=== PATIENT | male | born 1995 | race Caucasian/White ===

== ENCOUNTER 2021-01-01 15:15 | Outpatient (REF) | payer MEDICAID, SELFPAY ==
[2021-01-01 16:15] LABS: BUN 13 mg/dL (7-18); Calcium 9.4 mg/dL (8.5-10.1); Calculated LDL 144 mg/dL (<100); Chloride 106 mmol/L (98-107); Cholesterol 214 mg/dL (<200); Glucose 87 mg/dL (74-106); HDL Cholesterol 45 mg/dL (40-60); Potassium 4.1 mmol/L (3.5-5.1); Sodium 143 mmol/L (136-145); Triglyceride 127 mg/dL (<150)
== END 2021-01-01 15:16 | disposition home or self-care (01) ==
LOC: NCHCN 15:15
PROVIDERS: Visit Provider Physician Assistant
DX: K21.9 Gastro-esophageal reflux disease without esophagitis (principal); I10 Essential (primary) hypertension
CPT/HCPCS: 80048; 80061

== ENCOUNTER 2021-08-03 13:22 | Outpatient (REF) | payer MEDICAID, SELFPAY ==
[2021-08-06 16:42] LABS: Chlamydia Result Negative (Negative); GC Result Negative (Negative)
== END 2021-08-03 13:23 | disposition home or self-care (01) ==
LOC: NCHCN 13:22
PROVIDERS: Visit Provider Physician Assistant
DX: R30.0 Dysuria (principal); Z11.3 Encounter for screening for infections with a predominantly sexual mode of transmission
CPT/HCPCS: 87491; 87591

== ENCOUNTER 2022-01-08 12:20 | Outpatient (REF) | payer MEDICAID, SELFPAY ==
[2022-01-08 15:44] LABS: ALT 36 U/L (16-63); AST 15 U/L (15-37); Albumin 4.8 g/dL (3.4-5.0); Alkaline Phosphatase 90 U/L (46-116); Amylase 54 U/L (25-115); Anion Gap 11.8 mmol/L (3-11); BUN 17 mg/dL (7-18); Bilirubin, Total 0.5 mg/dL (0.2-1.0); CO2 26.2 mmol/L (21.0-32.0); Calcium 9.6 mg/dL (8.5-10.1); Chloride 104 mmol/L (98-107); Glucose 85 mg/dL (74-106); Lipase 89 U/L (73-393); Sodium 142 mmol/L (136-145); Total Protein 7.8 g/dL (6.4-8.2)
[2022-01-08 15:45] LABS: Abs Immature Grans 0.04 10^3/uL (0.0-0.06); Absolute Basophil Count 0.02 10^3/uL (0.0-0.2); Absolute Eosinophil Count 0.34 10^3/uL (0.0-0.7); Absolute Lymphocyte Count 3.35 10^3/uL (1.2-3.4); Absolute Monocyte Count 0.59 10^3/uL (0.1-0.8); Absolute Neutrophil Count 7.26 10^3/uL (1.2-6.7); Basophils % 0.2; Eosinophils % 2.9; HCT 47.9 % (40.0-50.0); HGB 16.3 g/dL (13.5-17.5); Immature Grans % 0.3; Lymphocytes % 28.9; MCH 29.9 pg (27.0-33.0); MCV 87.7 fL (80-95); MPV 10.8 fL (8.0-11.0); Monocytes % 5.1; Neutrophils % 62.6; Nucleated RBC 0 %; Platelet Count 238 10^3/uL (130-400); RBC 5.46 10^6/uL (4.36-5.78); RDW 12.7 % (11.8-14.1); RDW-SD 40.8 fL
[2022-01-09 11:48] LABS: IgA 254 mg/dL (85-499); Interpretation (See Note); Tissue Transglutaminase IgA <1.2 U/mL (<4.0)
== END 2022-01-08 12:21 | disposition home or self-care (01) ==
LOC: LBN 12:20
PROVIDERS: Visit Provider Nurse Practitioner Family
DX: R10.11 Right upper quadrant pain (principal)
CPT/HCPCS: 80053; 82784; 83516; 83690; 82150; 85025

== ENCOUNTER → 2022-01-08 14:58 | Outpatient (CLI) | payer MEDICAID, SELFPAY ==
--- NOTE | 2022-01-08 | DI.CT_ITS ---
Exam(s) CT ABDOMEN PELVIS W EXAM: CT ABDOMEN PELVIS W CLINICAL HISTORY: ABD PAIN R10.84 TECHNIQUE: Imaging Protocol: Axial computed tomography images with coronal and sagittal reformatted images were created and reviewed CONTRAST MATERIAL: Intravenous: Omnipaque 350 Contrast volume:100 mL Oral: Yes COMPARISON: No exams were available for comparison FINDINGS: ABDOMEN: Lung Bases: Normal where visualized. Liver: Normal density. No measurable mass. Portal, Superior Mesenteric, and Splenic Veins: Unremarkable. Gallbladder and Biliary Tract: No radiodense calculus or dilation. Pancreas: Normal density, no abnormal calcifications or inflammatory process. Spleen: Normal. Adrenals: No masses seen. Kidneys: The left kidney is small compared to the right. No radiodense stones or obstructive uropath y. No masses seen. Abdominal Aorta: Abdominal portion non-dilated. Bowel: No obstruction or bowel wall thickening. The appendix measures 8 mm in diameter. There is an appendicoliths seen in its midpoint. No definite periappendiceal inflammatory changes are present. Peritoneal Cavity: No ascites, collection or mesenteric inflammatory response. No free air. Lymph Nodes: Within normal limits. Bones: Within normal limits for the patient's age. Soft Tissues: Unremarkable. PELVIS: Bladder: The urinary bladder is incompletely distended. There is diffuse thickening of the wall of t he urinary bladder. This may be due to underdistention. Cystitis cannot be excluded. Reproductive Organs: Unremarkable as visualized. Lymph Nodes: Within normal limits. Bones: Within normal limits for the patient's age. IMPRESSION: 1. Appendiceal diameter is 8 mm with an appendicolith present. No definite periappendiceal inflammat ory changes are present. Early appendicitis cannot be excluded. Please correlate clinically. 2. Incomplete distension of the urinary bladder. Diffuse thickening of the wall of the urinary bladd er which may reflect underdistention. Cystitis cannot be excluded. RADIATION DOSE DELIVERED: 1,051.46mGy.cm Total DLP DATA REPOSITORY: All CT scans at this facility are submitted to the National Radiology Data Registry (NRDR) Dose Index Registry (DIR) with the [employer] (ACR). RADIATION OPTIMIZATION: All CT scans at this facility use at least one of these dose optimization te chniques: automated exposure control; mA and/or kV adjustment per patient size (includes targeted exa ms where dose is matched to clinical indication); or iterative reconstruction.
[2022-01-08] MEDS: Omnipaque 350 MG/ML 50 ML BTL PO (14:10)
[2022-01-08] MEDS: Breeza Beverage 473 ML BTL PO ×2 (14:12→14:13)
[2022-01-08] MEDS: Omnipaque 350 MG/ML 100 ML BTL IJ (16:01)
== END ==
PROVIDERS: PCP Physician Assistant; Visit Provider Nurse Practitioner Family
DX: R10.84 Generalized abdominal pain (principal); N32.89 Other specified disorders of bladder; K38.8 Other specified diseases of appendix
CPT/HCPCS: 74177; J3490; Q9967

== ENCOUNTER 2022-01-08 17:59 | Observation (INO) | payer MEDICAID, SELFPAY ==
[2022-01-08 18:05] VITALS: BP 146/89; PULSE 106; O2SAT 98
--- NOTE | 2022-01-08 18:27 | W.ANESPRE ---
General Info Height: 6 ft 1 in Weight: 99.79 kg Body Mass Index (BMI): 29.0 Meds Allergies and Home Medications Allergies Allergy/AdvReac Type Severity Reaction Status Date / Time No Known Allergies Allergy Unverified 01/08/22 18:07 Home Medication Medication Instructions Recorded Unknown [No Known Home Meds] 06/08/15 Current Visit Medications: Current Medications Generic Name Dose Route Start Last Admin Trade Name Freq PRN Reason Stop Dose Admin Sodium Chloride 500 mls @ 0 mls/hr 01/08/22 18:00 Saline 500ml Bag IV PRN PRN As Directed Ringer's Solution 1,000 mls @ 125 mls/hr 01/08/22 18:00 IV INFUSION CHERIE Ceftriaxone Sodium/Dextrose 1 gm in 50 mls @ 100 mls/hr 01/08/22 18:00 Rocephin IVPB 01/08/22 18:29 NOW ONE IV Miscellaneous Supplies 1 each 01/08/22 18:00 Iv Access IV DIRECTED CHERIE Sodium Chloride 0 ml 01/08/22 18:00 Normal Saline Flush 10 Ml Syr IVP PRN PRN PFSH Active Problems Active Problems: Problem Status Onset Code Ankle sprain [id number] Tobacco Smoking/Tobacco Use Status: Former Tobacco Use Alcohol Alcohol Intake: current Alcohol intake frequency: holidays/special occasions only Substance Use Substance use: Never Substance use type: does not use Vital Signs and Lab Results Vital Signs Most Recent Vital Signs in EMR: Most Recent Vital Signs Pulse BP Pulse Ox 106 H 146/89 H 98 01/08/22 18:05 01/08/22 18:05 01/08/22 18:05 Lab Results Blood Type / Crossmatch: No Data to Display Complete Blood Count: White Blood Count 11.60 10^3/uL (4.4-10.8) H 01/08/22 11:40 01/08/22 Red Blood Count 5.46 10^6/uL (4.36-5.78) 01/08/22 11:40 01/08/22 Hemoglobin 16.3 g/dL (13.5-17.5) 01/08/22 11:40 01/08/22 Hematocrit 47.9 % (40.0-50.0) 01/08/22 11:40 01/08/22 Platelet Count 238 10^3/uL (130-400) 01/08/22 11:40 01/08/22 Complete Metabolic Panel: Sodium Level 142 mmol/L (136-145) 01/08/22 11:40 01/08/22 Potassium Level 4.0 mmol/L (3.5-5.1) 01/08/22 11:40 01/08/22 Chloride Level 104 mmol/L (98-107) 01/08/22 11:40 01/08/22 Carbon Dioxide Level 26.2 mmol/L (21.0-32.0) 01/08/22 11:40 01/08/22 Blood Urea Nitrogen 17 mg/dL (7-18) 01/08/22 11:40 01/08/22 Creatinine 1.0 mg/dL (0.70-1.30) 01/08/22 11:40 01/08/22 Estimated GFR/1.73 m2 >= 60.00 (mL/min/1.73m2) 01/08/22 11:40 01/08/22 Calcium Level 9.6 mg/dL (8.5-10.1) 01/08/22 11:40 01/08/22 Albumin 4.8 g/dL (3.4-5.0) 01/08/22 11:40 01/08/22 Glucose Level 85 mg/dL (74-106) 01/08/22 11:40 01/08/22 Liver Function Panel: Alanine Aminotransferase (ALT/SGPT) 36 U/L (16-63) 01/08/22 11:40 01/08/22 Aspartate Amino Transf (AST/SGOT) 15 U/L (15-37) 01/08/22 11:40 01/08/22 Coagulation Panel: No Data to Display Cardiac Panel: No Data to Display Arterial Blood Gas: No Data to Display Venous Blood Gas: No Data to Display Pancreas Panel: Amylase Level 54 U/L (25-115) 01/08/22 11:40 01/08/22 Lipase 89 U/L (73-393) 01/08/22 11:40 01/08/22 Thyroid Panel: No Data to Display Infectious Disease: Coronavirus (COVID-19)(PCR) Pending 01/08/22 18:03 01/08/22 Coronavirus 2019 Source Pending 01/08/22 18:03 01/08/22 Blood Cultures: No Data to Display Toxicology Panel: No Data to Display Anesthesia Assessment and Plan Anesthesia History Personal History: No History of Anesthesia Complications
[2022-01-08 18:33] LABS: Source Nasal/Nares
[2022-01-08] MEDS: Lactated Ringers 1,000 ML 125 ML IV (18:38)
[2022-01-08 19:12] LABS: COVID-19 PCR Negative (Negative)
--- NOTE | 2022-01-08 19:12 | W.ED.GENAD ---
Discharge Plan Disposition Patient Disposition: [facility] INPATIENT Discharge Details Chief Complaint: Abd Prob Clinical Impression: Abdominal pain Admit Date/Time: 01/08/22 19:10 Admit Provider: Katelyn Anderson Attending Provider: Katelyn Anderson Primary Care Provider: Yoshi Sanchez ED Provider: Александр Newman Discharge Instructions Activity:: Activity as Tolerated Equipment/Supplies:: No Equipment Needed Diet:: As Tolerated Discharge Orders Discharge Orders: Discharge Order (Routine); Ordered 01/09/22 Ordered By: Taylor Landin Discharge Data Discharge Date/Time-TO BE ENTERED AT DEPARTURE: 01/08/22 19:35 Medical Decision Making 26-year-old male here with abdominal discomfort in the past 2 weeks. Patient was seen at [facility] and had CT the abdomen pelvis that showed appendicolith. There was concern for appendicitis and patient was sent to the ED for further evaluation. On my exam, patient has no abdominal tenderness, he has no tenderness right lower quadrant. Abdominal exam is completely benign. I reviewed results of outpatient CT abdomen pelvis from earlier today: IMPRESSION: 1. Appendiceal diameter is 8 mm with an appendicolith present.? No definite periappendiceal inflammatory changes are present.? Early appendicitis cannot be excluded.? Please correlate clinically. 2. Incomplete distension of the urinary bladder.? Diffuse thickening of the wall of the urinary bladder which may reflect underdistention.? Cystitis cannot be excluded.? I consulted on-call surgeon Dr. Anderson who is aware of the patient coming to the ED. She evaluated the patient at bedside and will admit for observation. Medical Records Medical records reviewed: Yes I reviewed the patient's medical records. HPI General Mode of arrival: ambulatory. Date/Time Provider Initiated Documentation: 01/08/22 18:00. Limitations to Documentation: no limitations. Information obtained by: patient. HPI Narrative: 26-year-old male with chief complaint of abdominal pain. Patient notes abdominal pain for the past 2 weeks. Pain is localized to central abdomen. Pain is mild. No modifiers. No associated nausea or vomiting. He has had some loose stool. Related Data Home Medications Medication Instructions Recorded Confirmed Unknown [No Known Home Meds] 01/08/22 01/08/22 Allergies Allergy/AdvReac Type Severity Reaction Status Date / Time No Known Allergies Allergy Unverified 01/08/22 18:07 General Stated Complaint: Abd Prob HERMELINDO: 3 Review of Systems All systems reviewed & are unremarkable except as noted in HPI and below Constitutional Constitutional: Denies fever(s) Gastrointestinal Gastrointestinal: Reports as per HPI, Denies hematochezia, Denies nausea and Denies vomiting PFSH All Active Problems (Updated 01/11/22 @ 16:34 by Александр Newman MD) Viral gastroenteritis (Acute) Acute diarrhea (Acute) Abdominal pain (Acute) Ankle sprain (Acute) Social History Smoking/Tobacco Use Status: Former Tobacco Use Smoking risk assessment performed?: Yes Alcohol Intake: current Alcohol Intake frequency: holidays/special occasions only Drug use: Never Substance use type: does not use Do you feel safe at home: Yes Do you feel safe in your relationship?: Yes Exam Const General: cooperative and no acute distress HENMT Mouth: moist mucous membranes Eyes Conjunctivae: normal conjunctivae Sclera: normal sclerae Resp Auscultation: clear to auscultation bilaterally, no rales, no rhonchi and no wheezes Cardio Rate: regular rate and not tachycardic Rhythm: regular rhythm GI Palpation: soft, not firm, no guarding, no masses, not rigid and nontender Skin General skin exam: no rashes or lesions noted Neuro General: patient alert, patient awake and tone normal Psych Appearance: grossly normal Mental Status: mental status grossly normal Speech and Movement: speech and movement normal Course Vital Signs Vital signs: Vital Signs Pulse 106 H 01/08/22 18:05 Blood Pressure 146/89 H 01/08/22 18:05 Pulse Oximetry 98 01/08/22 18:05 Pulse 106 H 01/08/22 18:05 Respiratory Effort Non-Labored 01/08/22 18:07 Blood Pressure 146/89 H 01/08/22 18:05 Blood Pressure Position Sitting 01/08/22 18:05 Pulse Oximetry 98 01/08/22 18:05 Oxygen Delivery Method Room Air 01/08/22 18:05 Oxygen Flow Rate 0 01/08/22 18:05 Pain Level 0 01/08/22 18:34 Lab/Test Results Lab/Test Results: Laboratory Tests Range/Units 01/08/22 14:18 COVID-19 Source Nasal/Nares
--- NOTE | 2022-01-08 19:15 | HPE_ITS ---
Date of service: 01/08/22 Time of Service: 19:16 Assessment and Plan Assessment and plan (1) Abdominal pain: Status: Acute (2) Acute diarrhea: Status: Acute (3) Viral gastroenteritis: Status: Acute Assessment and plan: I did discuss with the patient and his significant other in infusion what our plan is. I am concerned because he just be a large meal. He has no clinical findings of acute appendicitis. Because of his lab work is suggested as none. Clinically patient looks healthy and nontoxic. I think the best course of action is to keep him overnight for observation. We will repeat lab work in 2-week and do stool studies. But I think this is more of a viral gastroenteritis. And being that he just ate a large meal 2 hours ago I think it would be prudent to not pursue exploratory surgery in the benefits do not outweigh the. I did apprise Dr. Walker of the situation and she will evaluate the patient in the am History of Present Illness Narrative: Patient is a 26-year-old male who presented to urgent care today complaining of abdominal pain, diarrhea, fatigue and lack of appetite. CBC showed a white count 11.6 with a left shift. CT did show a mildly dilated appendix and an appendicolith. Plans were made to bring the patient in the hospital and taken to surgery for appendicitis. Upon interviewing the patient. He had gone home immediately from [place] and eating a large meal. He has had no nausea vomiting. He has had no fever and chills. He has had some mild diffuse nonspecific abdominal pain and diarrhea off and on for the last 2 weeks. HE has no right lower quadrant pain. He has no fever. He has absolutely no abdominal pain with deep palpation. He has not recently traveled out of state. He has not recently been on antibiotics. 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 He has never had surgery or anesthesia before. He has no medical problems. No known drug allergies. He is not currently on any medication He denies any tobacco or THC. Review of Systems All systems reviewed & are unremarkable except as noted in HPI and below PFSH All Active Problems (Updated 01/08/22 @ 19:22 by Katelyn Anderson DO) Viral gastroenteritis (Acute) Acute diarrhea (Acute) Abdominal pain (Acute) Ankle sprain (Acute) Social History (Reviewed 01/08/22 @ 19:19 by MARIANNA Sanderson Smoking/Tobacco Use Status: Former Tobacco Use Smoking risk assessment performed?: Yes Alcohol Intake: current Alcohol Intake frequency: holidays/special occasions only Drug use: Never Substance use type: does not use Do you feel safe at home: Yes Do you feel safe in your relationship?: Yes Meds Allergies and Home Medications Allergies Allergy/AdvReac Type Severity Reaction Status Date / Time No Known Allergies Allergy Unverified 01/08/22 18:07 Home Medications Medication Instructions Recorded Confirmed Type Unknown [No Known Home Meds] 06/08/15 01/30/18 History Exam [facility] Head: normal to inspection Ears: hearing grossly normal bilaterally Teeth and gingiva: dentition normal Resp Effort & Inspection: normal respiratory effort and able to speak in complete sentences Auscultation: clear to auscultation bilaterally Cardio Rate: regular rate Rhythm: regular rhythm GI Inspection: normal to inspection Palpation: soft Auscultation: normal bowel sounds Other: He has known bone hernia. He has no distention. He has normal bowel sounds. He has no abdominal pain. He has no fever and normal vital signs. He has no abdominal pain with deep palpation. He has no obturator sign. He has no guarding. He has no rebound. He has a negative heel strike Extrem General: no clubbing, cyanosis or edema Results Labs Labs: Laboratory Results - last 24 hr 01/08/22 14:18 COVID-19 Source Nasal/Nares Last Vital Signs Pulse 106 H 01/08/22 18:05 BP 146/89 H 01/08/22 18:05 Pulse Ox 98 01/08/22 18:05
[2022-01-08 19:27] VITALS: BP 149/75; PULSE 92; RESP 16; TEMP 36.6; O2SAT 97
[2022-01-08 19:50] VITALS: BP 130/89; PULSE 90; RESP 20; TEMP 37.2; O2SAT 98
[2022-01-08 22:20] VITALS: BP 134/83; PULSE 68; RESP 18; TEMP 36.6; O2SAT 96
[2022-01-09] MEDS: Lactated Ringers 1,000 ML 125 ML IV (04:16)
[2022-01-09 07:24] LABS: Abs Immature Grans 0.03 10^3/uL (0.0-0.06); Absolute Basophil Count 0.01 10^3/uL (0.0-0.2); Absolute Eosinophil Count 0.21 10^3/uL (0.0-0.7); Absolute Lymphocyte Count 2.55 10^3/uL (1.2-3.4); Absolute Neutrophil Count 5.22 10^3/uL (1.2-6.7); Basophils % 0.1; Eosinophils % 2.5; HCT 43.9 % (40.0-50.0); Immature Grans % 0.4; Lymphocytes % 29.9; MCH 29.7 pg (27.0-33.0); MCHC 34.2 % (32.0-36.0); MCV 86.9 fL (80-95); MPV 10.2 fL (8.0-11.0); Monocytes % 5.9; Neutrophils % 61.2; Nucleated RBC 0 %; Platelet Count 207 10^3/uL (130-400); RBC 5.05 10^6/uL (4.36-5.78); RDW 12.7 % (11.8-14.1); RDW-SD 39.9 fL; WBC 8.52 10^3/uL (4.4-10.8)
[2022-01-09 07:28] VITALS: BP 140/85; PULSE 78; RESP 16; TEMP 37.1; O2SAT 100
[2022-01-09 07:45] LABS: C-Reactive Protein 1.21 mg/dL (0.0-0.3)
--- NOTE | 2022-01-09 09:05 | W.PM.PROGNOT ---
Date of Service Date of service: 01/09/22 Time of Service: 09:05 Assessment and Plan Assessment and plan (1) Viral gastroenteritis: Status: Acute Assessment and plan: Patient appears healthy, non-toxic Patient denies having any abdominal pain. No peritonitis or pain with deep palpation of the abdomen. (+) BS, BMs x 2 (diarrhea) Strongly encouraged activity OOB, ambulation and sitting in the chair. Stool studies ordered Will trial clear liquids (2) Acute diarrhea: Status: Acute Subjective Subjective Interval history since last seen: Patient states that he is doing well this morning. He denies having any pain, nausea or vomiting. He reports having BMs x 2 last night. Exam Const General: cooperative, healthy appearing and comfortable Orientation: alert and oriented x3 Resp Effort & Inspection: normal respiratory effort, no audible wheezes and no cough GI Inspection: normal to inspection Palpation: soft, no guarding and nontender Auscultation: normal bowel sounds Objective Last Vital Signs Temp 37.1 C 01/09/22 07:28 Pulse 78 01/09/22 07:28 Resp 16 01/09/22 07:28 BP 140/85 01/09/22 07:28 Pulse Ox 100 01/09/22 07:28 Laboratory Results - last 24 hr 01/08/22 01/08/22 01/09/22 14:18 19:15 06:20 WBC 8.52 RBC 5.05 Hgb 15.0 Hct 43.9 MCV 86.9 MCH 29.7 MCHC 34.2 RDW 12.7 Plt Count 207 MPV 10.2 Immature Gran % 0.4 Neutrophils % 61.2 Lymphocytes % 29.9 Monocytes % 5.9 Eosinophils % 2.5 Basophils % 0.1 Nucleated RBC % 0 Absolute Neutrophils 5.22 Absolute Lymphocytes 2.55 Absolute Monocytes 0.50 Absolute Eosinophils 0.21 Absolute Basophils 0.01 C-Reactive Protein COVID-19 Source Nasal/Nares Cancelled SARS-CoV-2 (PCR) Negative Cancelled 01/09/22 06:20 WBC RBC Hgb Hct MCV MCH MCHC RDW Plt Count MPV Immature Gran % Neutrophils % Lymphocytes % Monocytes % Eosinophils % Basophils % Nucleated RBC % Absolute Neutrophils Absolute Lymphocytes Absolute Monocytes Absolute Eosinophils Absolute Basophils C-Reactive Protein 1.21 H COVID-19 Source SARS-CoV-2 (PCR)
[2022-01-09] MEDS: Lactated Ringers 1,000 ML 80 ML IV (10:30)
--- NOTE | 2022-01-09 14:58 | W.PM.DS.N ---
Date of service: 01/09/22 Time of Service: 14:58 DS: Diagnosis Discharge Diagnosis (1) Viral gastroenteritis: Status: Acute (2) Acute diarrhea: Status: Acute Discharge Plan Disposition Patient Disposition: HOME Condition: Improving Discharge Details Reason For Visit: Abdominal Pain & Diarrhea R/O Appy Admit Date/Time: 01/08/22 19:10 Admit Provider: Katelyn Anderson Attending Provider: Katelyn Anderson Primary Care Provider: Yoshi Sanchez Hospital Course Hospital Course: 26 y/o male admitted to the surgical service for observation for abdominal pain and diarrhea. Patient was kept NPO over night and his symptoms improved. He had loose BMs. No nausea or vomiting. Abdominal pain resolved. No Abdominal pain with deep palpation. Tolerated a soft diet, without abdominal pain, nausea or vomiting. He was ambulating independently. Stool samples were sent for stool studies to r/o bacterial cause of diarrhea. Will call patient with these results. Will d/c home and have him follow up with his PCP in 1-2 weeks. Home Meds and New Rx's Prescriptions: No Action No Known Home Meds 0RF Discharge Instructions Additional Instructions: If you have any questions or concerns please feel free to call the Surgical Office at If your abdominal pain and/or diarrhea returns or worsens please call your PCP or our office. If you begin to experience any symptoms such as nausea, vomiting, fevers, chills or night sweats please again call you PCP, our office or return to the ER. Activity:: Activity as Tolerated Equipment/Supplies:: No Equipment Needed Diet:: As Tolerated Discharge Orders Discharge Orders: Discharge Order (Routine); Ordered 01/09/22 Ordered By: Taylor Landin DS: Summary Time Spent with Patient providing and/or coordinating discharge services: Less than 30 minutes Status at Discharge Functional status at discharge: independent ambulation Overall status at discharge: patient is back to baseline Mental Status: mental status grossly normal Speech and Movement: speech and movement normal Mood: congruent mood Affect: normal affect Exam Const General: cooperative, healthy appearing and comfortable Orientation: alert and oriented x3 Resp Effort & Inspection: normal respiratory effort, no audible wheezes and no cough GI Inspection: normal to inspection Palpation: soft, no guarding and nontender Auscultation: normal bowel sounds Psych Mental Status: mental status grossly normal Speech and Movement: speech and movement normal Mood: congruent mood Affect: normal affect DS: Data Vitals/I&O Vitals and I&O: Vital Signs Temperature 37.1 C 01/09/22 07:28 Temperature Source Tympanic 01/09/22 07:28 Pulse 78 01/09/22 07:28 Pulse Rhythm Regular 01/09/22 10:15 Respiratory Rate 16 01/09/22 07:28 Respiratory Effort Non-Labored 01/09/22 10:15 Respiratory Depth Normal 01/09/22 10:15 Respiratory Pattern Normal 01/09/22 10:15 Blood Pressure 140/85 01/09/22 07:28 Blood Pressure Position Sitting 01/08/22 18:05 Pulse Oximetry 100 01/09/22 07:28 Oxygen Delivery Method Room Air 01/09/22 07:28 Oxygen Flow Rate 0 01/09/22 07:28 Pain Level 1 01/09/22 07:28 Intake & Output 01/08/22 01/09/22 01/09/22 18:59 06:59 18:59 Intake Total 1000 / 1000 Output Total 1300 / 1300 Balance -300 / -300 Weight 99.79 kg 60.8 kg Intake: IV 1000 / 1000 Output: Urine 1300 / 1300 Other: Urine Color Yellow Urine Appearance Clear Clear Urine Odor Normal Comment Independent to the toilet Stool Size Moderate Stool Characteristics Soft Brown Voiding Methods Toilet Urinal Data Completed and Pending Labs on day of discharge: Labs from last 24 hours 01/09/22 01/09/22 01/08/22 06:20 06:20 21:47 WBC 8.52 RBC 5.05 Hgb 15.0 Hct 43.9 MCV 86.9 MCH 29.7 MCHC 34.2 RDW 12.7 Plt Count 207 MPV 10.2 Immature Gran % 0.4 Neutrophils % 61.2 Lymphocytes % 29.9 Monocytes % 5.9 Eosinophils % 2.5 Basophils % 0.1 Nucleated RBC % 0 Absolute Neutrophils 5.22 Absolute Lymphocytes 2.55 Absolute Monocytes 0.50 Absolute Eosinophils 0.21 Absolute Basophils 0.01 C-Reactive Protein 1.21 H Stool Campylobacter PCR Pending Stool Salmonella PCR Pending Stool Shigella PCR Pending COVID-19 Source SARS-CoV-2 (PCR) Shiga Toxin (PCR) Pending 01/08/22 01/08/22 19:15 14:18 WBC RBC Hgb Hct MCV MCH MCHC RDW Plt Count MPV Immature Gran % Neutrophils % Lymphocytes % Monocytes % Eosinophils % Basophils % Nucleated RBC % Absolute Neutrophils Absolute Lymphocytes Absolute Monocytes Absolute Eosinophils Absolute Basophils C-Reactive Protein Stool Campylobacter PCR Stool Salmonella PCR Stool Shigella PCR COVID-19 Source Cancelled Nasal/Nares SARS-CoV-2 (PCR) Cancelled Negative Shiga Toxin (PCR) PFSH All Active Problems (Updated 01/08/22 @ 19:22 by Katelyn Anderson DO) Viral gastroenteritis (Acute) Acute diarrhea (Acute) Abdominal pain (Acute) Ankle sprain (Acute) Social History Smoking/Tobacco Use Status: Former Tobacco Use Smoking risk assessment performed?: Yes Alcohol Intake: current Alcohol Intake frequency: holidays/special occasions only Drug use: Never Substance use type: does not use Do you feel safe at home: Yes Do you feel safe in your relationship?: Yes
[2022-01-09 23:11] LABS: Campylobacter PCR Negative (Negative); Salmonella PCR Negative (Negative); Shiga Toxin PCR Negative (Negative); Shigella/Enteroinvasive Ecoli Negative (Negative)
== END 2022-01-09 16:00 | disposition home or self-care (01) ==
LOC: ER 18:08 → MS 01-09 04:02
PROVIDERS: Admitting Provider Surgery; Emergency Provider Student in an Organized Health Care Education/Training Program; PCP Physician Assistant; Visit Provider Surgery
DX: A08.4 Viral intestinal infection, unspecified; R93.3 Abnormal findings on diagnostic imaging of other parts of digestive tract; Z87.891 Personal history of nicotine dependence; Z20.822 Contact with and (suspected) exposure to COVID-19
CPT/HCPCS: 36415; 87505; 87635; 96360; 99284; 99285; 85025; 86140; G0378; J0696; J1100; J2405

== ENCOUNTER 2022-06-11 16:38 | Outpatient (REF) | payer MEDICAID, SELFPAY ==
[2022-06-11 15:57] LABS: Calculated LDL 159 mg/dL (<100); Cholesterol 234 mg/dL (<200); HDL Cholesterol 52 mg/dL (40-60); Triglyceride 115 mg/dL (<150)
== END 2022-06-11 16:39 | disposition home or self-care (01) ==
LOC: NCHCN 16:38
PROVIDERS: PCP Physician Assistant; Visit Provider Physician Assistant
DX: E78.5 Hyperlipidemia, unspecified (principal)
CPT/HCPCS: 80061

== ENCOUNTER 2022-09-05 22:10 | Emergency (ER) | payer MEDICAID, SELFPAY ==
[2022-09-05 22:20] VITALS: BP 100/54; PULSE 44; RESP 16; TEMP 36.4; O2SAT 99
--- NOTE | 2022-09-05 22:30 | DI.CT_ITS ---
Exam(s) CT ABDOMEN PELVIS W EXAM: CT ABDOMEN PELVIS W CLINICAL HISTORY: Abdominal Pain, near Syncope. TECHNIQUE: Imaging Protocol: Axial computed tomography images with coronal and sagittal reformatted images were created and reviewed CONTRAST MATERIAL: Intravenous: Omnipaque 350 Contrast volume:100 ml Oral: no COMPARISON: CT CT ABDOMEN PELVIS W from 01/08/2022 FINDINGS: ABDOMEN: Lung Bases: Normal where visualized. Liver: Mildly enlarged. Mild hepatic steatosis. No measurable mass. Gallbladder and biliary tract: No radiodense calculus or dilation. Pancreas: Normal density, no abnormal calcifications or inflammatory process. Spleen: Normal. Kidneys: Left kidney is again noted to be somewhat atrophic compared to the right. Right kidney show s some compensatory hypertrophy.. No radiodense stones or obstructive uropathy. No masses seen. Stab le dilatation of the distal ureter. No obstructing stone or mass. Adrenal glands: No masses seen. Abdominal Aorta: Abdominal portion non-dilated. PELVIS: Bladder: No gross wall thickening. No calculi.No focal mass. Bowel: Normal quantity of stool. No obstruction or bowel wall thickening. And appendicoliths is agai n noted. There is no appendiceal dilatation or surrounding inflammatory changes. Peritoneal cavity: No ascites, collection or mesenteric inflammatory response. Bones: Within normal limits for age. Reproductive organs: Within normal limits. Lymph nodes: Unremarkable. Impression: No change in a appearance of mildly atrophic left kidney and dilatation of the distal left ureter. N o acute abnormality. RADIATION DOSE DELIVERED: 880.38mGy.cm Total DLP DATA REPOSITORY: All CT scans at this facility are submitted to the National Radiology Data Registry (NRDR) Dose Index Registry (DIR) with the [employer] (ACR). RADIATION OPTIMIZATION: All CT scans at this facility use at least one of these dose optimization te chniques: automated exposure control; mA and/or kV adjustment per patient size (includes targeted exa ms where dose is matched to clinical indication); or iterative reconstruction.
--- NOTE | 2022-09-05 22:35 | ED.GENADUL_ITS ---
Discharge Plan Disposition Patient Disposition: Home Condition: Stable Discharge Details Clinical Impression: Abdominal pain Primary Care Provider: Yoshi Sanchez ED Provider: Noe Funez Home Meds and New Rx's Prescriptions: No Action No Known Home Meds Discharge Instructions Instructions: Abdominal Pain (ED) Additional Instructions: your blood work and cat scan did not show concerning findings at this time if you have mild residual pain in the next week follow up with your primary care provider return to the emergency department for severe worsening pain, if you feel more ill or have persistent vomiting Discharge Data Discharge Date/Time-TO BE ENTERED AT DEPARTURE: 09/05/22 23:49 Medical Decision Making 27-year-old male presents to the ER with a chief complaint of midepigastric abdominal pain which occurred just prior to arrival. Patient reports that he had some chicken that was questionable may not have been fully cooked, had approximately 6 drinks prior to arrival heavier on set of some sharp pain. He was pale diaphoretic and near syncopal in the emergency department and a vasovagal type episode bradycardic heart rate of 44. Upon my initial presentation he reports that his pain is completely gone. CBC CMP lipase urinalysis ordered. Will consider CT abdomen pelvis. Care is to be handed off to oncoming provider Dr. Davon jones pending labs and CT abdomen pelvis. This text was generated using [employer] dictation system, please disregard any oddities of phrase or misspellings. Sign Out No HPI General Mode of arrival: wheelchair . Date/Time Provider Initiated Documentation: 09/05/22 22:14 . Limitations to Documentation: no limitations . Information obtained by: patient, RN notes reviewed and old records reviewed . HPI Narrative: 27-year-old male presents to the ER with a chief complaint of midepigastric abdominal pain which occurred just prior to arrival. Patient reports that he had some chicken that was questionable may not have been fully cooked, had approximately 6 drinks prior to arrival heavier on set of some sharp pain. He was pale diaphoretic and near syncopal in the emergency department and a vasovagal type episode bradycardic heart rate of 44. Upon my initial presentation he reports that his pain is completely gone. He denies any hematochezia no dark tarry stools he does report that he does drink alcohol approximately daily. He denies any problems urinating or burning with urination no flank pain. Related Data Home Medications Medication Instructions Recorded Confirmed Unknown [No Known Home Meds] 01/08/22 01/08/22 Allergies Allergy/AdvReac Type Severity Reaction Status Date / Time No Known Allergies Allergy Unverified 01/08/22 18:07 General HERMELINDO: 3 Review of Systems Narrative: History is somewhat limited patient does not appear to be under the influence of alcohol. All systems reviewed & are unremarkable except as noted in HPI and below Cardiovascular Cardiovascular: Denies chest pain, Reports diaphoresis, Reports syncope, Denies radiating jaw, neck or arm pain and Denies dyspnea Respiratory Respiratory: Denies dyspnea Gastrointestinal Gastrointestinal: Reports abdominal pain, Denies melena, Denies hematochezia, Reports nausea and Denies hematemesis Neurologic Neurologic: Reports syncope PFSH All Active Problems (Updated 09/05/22 @ 23:44 by Noe Funez MD) Viral gastroenteritis (Acute) Acute diarrhea (Acute) Abdominal pain (Acute) Ankle sprain (Acute) Social History Smoking/Tobacco Use Status: Former Tobacco Use Smoking risk assessment performed?: Yes Alcohol Intake: current Alcohol Intake frequency: holidays/special occasions only Drug use: Never Substance use type: does not use Do you feel safe at home: Yes Do you feel safe in your relationship?: Yes Exam Narrative Exam Narrative: Constitutional: Alert and oriented x3. Appears stated age. Normal body habitus. Patient appears to be under the influence he does endorse alcohol prior to arrival. He did have a near syncopal episode here upon arrival. Was diaphoretic bradycardic. This has resolved. Head: Normocephalic, no trauma. Eyes: Pupils PERRL, Red reflex noted, EOM's intact. Eyelids symmetrical without lesions, discharge, or swelling. ENT: Bilateral TM's WNL, External ear normal to inspection, no mastoid TTP, swelling, or erythema, Nasal turbinates WNL, no nasal discharge. Normal dentition, Posterior pharynx WNL, no exudate. Chest: RRR, Normal S1, S2, distal pulses intact. Resp: Lungs clear to auscultation bilaterally, no wheezes, rales, or rhonchi. Abdomen: Soft, non-distended, Normoactive bowel sounds all 4 quads. Nontender to palpation all 4 quadrants. Musculoskeletal: Normal gait, 5/5 strength to all four extremities. Skin: No suspicious rashes or lesions. Capillary refill less than 2 sec. pale Neurologic: Cranial nerves II-XII intact. Alert and oriented x 3. Motor: No deficits noted. Sensory: Intact bilaterally all 4 extremities. Reflexes: DTR's intact bilaterally.. Hematologic/Lymphatic: No ecchymosis, no lymphadenopathy. Sign Out Sign Out Data: Sign Out Comment: Abd Pain/ Mid epigastric pain, Pending CT and labs. Had a near syncopal /vagal episode in Waiting room. Pain relieved upon my examination Last updated by Floresita Maldonado NP at 09/05/22 23:16
[2022-09-05 23:01] LABS: Abs Immature Grans 0.05 10^3/uL (0.0-0.06); Absolute Basophil Count 0.02 10^3/uL (0.0-0.2); Absolute Eosinophil Count 0.07 10^3/uL (0.0-0.7); Absolute Lymphocyte Count 3.44 10^3/uL (1.2-3.4); Absolute Monocyte Count 0.51 10^3/uL (0.1-0.8); Absolute Neutrophil Count 5.29 10^3/uL (1.2-6.7); Basophils % 0.2; Eosinophils % 0.7; HCT 43.8 % (40.0-50.0); HGB 15.2 g/dL (13.5-17.5); Immature Grans % 0.5; Lymphocytes % 36.7; MCH 30.6 pg (27.0-33.0); MCHC 34.7 % (32.0-36.0); MCV 88 fL (80-95); MPV 9.8 fL (8.0-11.0); Monocytes % 5.4; Neutrophils % 56.5; Platelet Count 217 10^3/uL (130-400); RBC 4.96 10^6/uL (4.36-5.78); RDW 12.2 % (11.8-14.1); RDW-SD 39.7 fL; WBC 9.38 10^3/uL (4.4-10.8)
[2022-09-05] MEDS: Omnipaque 350 MG/ML 100 ML BTL IJ (23:01)
[2022-09-05 23:15] LABS: ETHANOL BLOOD 142.1 mg/dL (<10)
[2022-09-05 23:17] LABS: ALT 53 U/L (16-63); AST 56 U/L (15-37); Albumin 4.2 g/dL (3.4-5.0); Alkaline Phosphatase 74 U/L (46-116); Anion Gap 7.9 mmol/L (3-11); BUN 19 mg/dL (7-18); Bilirubin, Total 0.3 mg/dL (0.2-1.0); CO2 27.1 mmol/L (21.0-32.0); CREATININE 1.2 mg/dL (0.70-1.30); Calcium 8.7 mg/dL (8.5-10.1); Chloride 102 mmol/L (98-107); Estimated GFR 84.48 (mL/min/1.73m2); Glucose 110 mg/dL (74-106); Lipase 127 U/L (73-393); Potassium 3.3 mmol/L (3.5-5.1); Sodium 137 mmol/L (136-145); Total Protein 7.5 g/dL (6.4-8.2)
[2022-09-05 23:27] LABS: Bilirubin Negative (Negative); Blood Negative (Negative); Clarity Clear (Clear); Glucose Negative (Negative); Ketones Negative (Negative); Leukocyte Esterase Negative (Negative); Nitrite Negative (Negative); Specific Gravity 1.015 (1.005-1.025); Urobilinogen 0.2 EU/dL (Up TO 0.2)
--- NOTE | 2022-09-05 23:34 | DI.VRAD_ITS ---
PROCEDURE INFORMATION: Exam: CT Abdomen And Pelvis With Contrast Exam date and time: 09/05/2022 10:55 PM Age: 27 years old Clinical indication: Abdominal pain TECHNIQUE: Imaging protocol: Computed tomography of the abdomen and pelvis with contrast. COMPARISON: CT ABDOMEN PELVIS W 01/08/2022 3:47 PM FINDINGS: Liver: Unremarkable liver. No mass identified. Gallbladder and bile ducts: The gallbladder is unremarkable. No calcified stones. No ductal dilation. Pancreas: No ductal dilation. No pancreatic lesion seen. Spleen: Normal. No splenomegaly. Adrenal glands: The adrenal glands are unremarkable. No defined mass. Kidneys and ureters: No hydronephrosis. There is redemonstration of increased caliber of the distal left ureter, similar to prior examination. The left kidney is smaller in size when compared to the right. Stomach and bowel: No obstruction. No mucosal thickening. Appendix: No evidence of appendicitis. Intraperitoneal space: No free air. No significant fluid collection. Vasculature: No abdominal aortic aneurysm. Lymph nodes: No enlarged lymph nodes. Urinary bladder: Unremarkable urinary bladder. Reproductive: Unremarkable as visualized. Bones/joints: No acute fracture. Soft tissues: Unremarkable. IMPRESSION: 1. No evidence of bowel obstruction or acute bowel inflammation. 2. Stable increased caliber of the distal left ureter. No nephrolithiasis or hydronephrosis. Dictated and Authenticated by: Jayne Landeros MD. Ordering:DIONY Canas MD
[2022-09-05 23:39] LABS: *AMPHETAMINES SCREEN URINE Negative (Negative); *BARBITURATES SCREEN URINE Negative (Negative); *BENZODIAZEPINES SCREEN URINE Negative (Negative); Cannabinoids THC Negative (Negative); Cocaine Screen,Urine Negative (Negative); OPIATES URINE SCREEN Negative (Negative)
[2022-09-05 23:41] LABS: Tricyclic Antidepressants Negative (Negative)
--- NOTE | 2022-09-05 23:42 | ED.PROG_ITS ---
Date of service: 09/05/22 Time of Service: 23:42 Medical Decision Making pt's labs and imaging show no significant abnormalities, he is stable and has no pain now and requesting d/c, has no tenderness at all on abdominal exam. Given rapid resolution of symptoms suspect food related illness, given no longer havi ng pain or symptoms do not feel further testing or observation indicated. He will f/u with his pcp as needed and return precautions given Imaging Data Radiologic Study: Attestation: I personally reviewed and interpreted this imaging study as follows: Imaging: CT Scan Radiologist's impression: 1. No evidence of bowel obstruction or acute bowel inflammation. 2. Stable increased caliber of the distal left ureter. No nephrolithiasis or hydronephrosis Lab Data Lab results reviewed: Yes I reviewed the patient's lab results. Sign Out Yes Sign Out Sign Out Data: Sign Out Comment: Abd Pain/ Mid epigastric pain, Pending CT and labs. Had a near syncopal /vagal episode in Waiting room. Pain relieved upon my examination Last updated by Floresita Maldonado NP at 09/05/22 23:16 Discharge Plan Disposition Patient Disposition: Home Condition: Stable Discharge Details Chief Complaint: Abd Prob Clinical Impression: Abdominal pain Primary Care Provider: Yoshi Sanchez ED Provider: Noe Funez Home Meds and New Rx's Prescriptions: No Action No Known Home Meds Discharge Instructions Instructions: Abdominal Pain (ED) Additional Instructions: your blood work and cat scan did not show concerning findings at this time if you have mild residual pain in the next week follow up with your primary care provider return to the emergency department for severe worsening pain, if you feel more ill or have persistent vomiting
== END 2022-09-05 23:49 | disposition home or self-care (01) ==
PROVIDERS: Registered Nurse Emergency; Emergency Provider Emergency Medicine; PCP Physician Assistant
DX: R10.13 Epigastric pain (principal)
CPT/HCPCS: 80053; 80307; 83690; 96361; 96374; 99285; 74177; 80320; 81003; 83735; 85025; 99284; J3490

== ENCOUNTER 2023-07-01 16:51 | Outpatient (REF) | payer SELFPAY ==
[2023-07-01 19:01] LABS: HCT 33.7 % (40.0-50.0); HGB 11.6 g/dL (13.5-17.5); MCH 30.2 pg (27.0-33.0); MCHC 34.4 % (32.0-36.0); MCV 88 fL (80-95); MPV 9.2 fL (8.0-11.0); Platelet Count 457 10^3/uL (130-400); RBC 3.84 10^6/uL (4.36-5.78); RDW 12.8 % (11.8-14.1); WBC 12.11 10^3/uL (4.4-10.8)
[2023-07-01 19:07] LABS: ALT 84 U/L (16-63); AST 46 U/L (15-37); Albumin 3.5 g/dL (3.4-5.0); Alkaline Phosphatase 81 U/L (46-116); Anion Gap 10.3 mmol/L (3-11); BUN 17 mg/dL (7-18); Bilirubin, Total 0.8 mg/dL (0.2-1.0); CO2 25.7 mmol/L (21.0-32.0); CREATININE 0.8 mg/dL (0.70-1.30); Chloride 101 mmol/L (98-107); Estimated GFR 122.86 (mL/min/1.73m2); Glucose 130 mg/dL (74-106); Lipase 39 U/L (16-77); Potassium 3.9 mmol/L (3.5-5.1); Sodium 137 mmol/L (136-145); Total Protein 7.1 g/dL (6.4-8.2)
[2023-07-01 19:21] LABS: Calcium 9.2 mg/dL (8.5-10.1); Calculated LDL 132 mg/dL (<100); Cholesterol 207 mg/dL (<200); HDL Cholesterol 44 mg/dL (40-60); Triglyceride 157 mg/dL (<150)
== END 2023-07-01 16:52 | disposition home or self-care (01) ==
LOC: NCHCN 16:51
PROVIDERS: PCP Physician Assistant; Visit Provider Physician Assistant
DX: R10.84 Generalized abdominal pain (principal); I10 Essential (primary) hypertension; E78.5 Hyperlipidemia, unspecified
CPT/HCPCS: 80053; 80061; 83690; 85027

== ENCOUNTER 2023-07-07 16:25 | Outpatient (REF) | payer SELFPAY ==
[2023-07-07 16:16] LABS: HCT 36.7 % (40.0-50.0); HGB 12.4 g/dL (13.5-17.5); MCH 29.8 pg (27.0-33.0); MCHC 33.8 % (32.0-36.0); MCV 88 fL (80-95); MPV 9.2 fL (8.0-11.0); Platelet Count 462 10^3/uL (130-400); RBC 4.16 10^6/uL (4.36-5.78); RDW 12.6 % (11.8-14.1); RDW-SD 40.7 fL; WBC 11.81 10^3/uL (4.4-10.8)
[2023-07-07 16:47] LABS: ALT 34 U/L (16-63); AST 11 U/L (15-37); Albumin 3.8 g/dL (3.4-5.0); Alkaline Phosphatase 83 U/L (46-116); Anion Gap 8.7 mmol/L (3-11); BUN 12 mg/dL (7-18); Bilirubin, Total 0.8 mg/dL (0.2-1.0); CO2 26.3 mmol/L (21.0-32.0); Calcium 9.6 mg/dL (8.5-10.1); Chloride 103 mmol/L (98-107); Estimated GFR 104.48 (mL/min/1.73m2); Glucose 95 mg/dL (74-106); Sodium 138 mmol/L (136-145); Total Protein 7.2 g/dL (6.4-8.2)
[2023-07-08 11:10] LABS: Hepatitis A Antibody IgM Negative (Negative); Hepatitis B Core Antibody Negative (Negative); Hepatitis B surface Ag Negative (Negative); Hepatitis C Ab w Rflx HCV PCR Negative (Negative)
== END 2023-07-07 16:26 | disposition home or self-care (01) ==
LOC: NCHCN 16:25
PROVIDERS: PCP Physician Assistant; Visit Provider Physician Assistant
DX: R10.84 Generalized abdominal pain (principal); I10 Essential (primary) hypertension; Z11.59 Encounter for screening for other viral diseases
CPT/HCPCS: 80053; 85027; 86704; 86709; 86803; 87340

== ENCOUNTER 2024-02-13 11:26 | Outpatient (REF) | payer OTHER, SELFPAY ==
[2024-02-14 00:23] LABS: Hepatitis C Ab w Rflx HCV PCR Negative (Negative)
[2024-02-14 00:26] LABS: HIV-1/2 Ag & Ab Screen Negative (Negative)
[2024-02-14 13:37] LABS: Chlamydia Result Negative (Negative); GC Result Negative (Negative)
[2024-02-16 11:53] LABS: Syphilis Serology (RPR) Negative (Negative)
== END 2024-02-13 11:27 | disposition home or self-care (01) ==
LOC: NCHCN 11:26
PROVIDERS: PCP Physician Assistant; Visit Provider Physician Assistant
DX: Z11.59 Encounter for screening for other viral diseases (principal)
CPT/HCPCS: 86803; 87389; 87491; 87591; 86592

== ENCOUNTER 2024-03-23 19:25 | Emergency (ER) | payer OTHER, SELFPAY ==
[2024-03-23 19:29] VITALS: BP 167/94; PULSE 100; RESP 16; TEMP 36.6; O2SAT 98
[2024-03-23 19:53] VITALS: BP 167/94; PULSE 100; RESP 16; TEMP 36.6; O2SAT 98
--- NOTE | 2024-03-23 20:00 | DI.CT_ITS ---
Exam(s) CT ABDOMEN PELVIS WO EXAM: CT ABDOMEN PELVIS WO CLINICAL HISTORY: Left Flank pain, Fever, Urinary urgency. TECHNIQUE: Imaging Protocol: Axial computed tomography images with coronal and sagittal reformatted images were created and reviewed. Oral: no COMPARISON: CT CT ABDOMEN PELVIS W from 09/05/2022 FINDINGS: Lung Bases: No acute findings. Liver: Normal density. No suspicious mass. Gallbladder and biliary tract: No radiodense calculus or biliary dilation. Pancreas: Normal density. No abnormal calcifications or inflammatory process. Spleen: Normal. Kidneys: Left renal atrophy again noted. Stable dilatation of the distal left ureter. No evidence o f stones. No visible hypodensities. No perinephric collection. No obstructive uropathy. No suspici ous masses seen. Adrenal glands: No masses seen. Lymph nodes: Within normal limits. Vasculature: Abdominal aorta non-dilated. Soft tissues: Unremarkable. Bladder: No wall thickening. No mass or calculi. Bowel: No obstruction or bowel wall thickening. Peritoneal cavity: No ascites. No focal collection. No mesenteric inflammatory response. Reproductive organs: Unremarkable. Bones: Unremarkable for age. IMPRESSION: No acute abnormality in the abdomen or pelvis. Stable appearance of atrophic left kidney and dilatation of distal left ureter. RADIATION DOSE DELIVERED: 1,150.59mGy.cm Total DLP DATA REPOSITORY: All CT scans at this facility are submitted to the National Radiology Data Registry (NRDR) Dose Index Registry (DIR) with the [employer] (ACR). RADIATION OPTIMIZATION: All CT scans at this facility use at least one of these dose optimization te chniques: automated exposure control; mA and/or kV adjustment per patient size (includes targeted exa ms where dose is matched to clinical indication); or iterative reconstruction.
--- NOTE | 2024-03-23 20:03 | W.ED.GENAD ---
Discharge Plan Disposition Patient Disposition: Against Medical Advice Condition: Stable Discharge Details Clinical Impression: Flank pain, Abdominal pain Primary Care Provider: Yoshi Sanchez ED Provider: Floresita Maldonado Home Meds and New Rx's Prescriptions: No Action No Known Home Meds Discharge Instructions Instructions: Abdominal Pain, Adult ED, Flank Pain ED Additional Instructions: At this time you have requested to be discharged and leave AGAINST MEDICAL ADVICE prior to the completion of your workup. I cannot definitively give a diagnosis without the CT results. You do have a little bit of a high white blood cell count, small amount of trace blood in your urine. Follow up with primary care provider in 3-5 days. Return to ED sooner if any worsening or concerns. Please take Tylenol or Ibuprofen with food every 4-6 hours as needed for pain and swelling. Referrals: Yoshi Sanchez [Primary Care Provider] - 3 days HPI General Mode of arrival: ambulatory. Date/Time Provider Initiated Documentation: 03/23/24 19:57. Limitations to Documentation: no limitations. Information obtained by: patient, RN notes reviewed and old records reviewed. HPI Narrative: 28-year-old male presents to the ER with a chief complaint of intermittent, stabbing left lower quadrant abdominal pain which began this morning. He reports fever 100.8 yesterday. He has been taking Tylenol. Upon arrival his pain is resolved. He also reports some urinary urgency. Past surgical history includes appendectomy, No other significant past medical history or surgeries. He reports this happened approximately a month ago and has doctor checked him for STDs and had negative workup at that time. He denies any concerns for STDs, denies any testicular swelling pain. Related Data Home Medications Medication Instructions Recorded Confirmed Unknown [No Known Home Meds] 01/08/22 03/23/24 Allergies Allergy/AdvReac Type Severity Reaction Status Date / Time No Known Allergies Allergy Unverified 03/23/24 19:35 General Stated Complaint: Abd Prob HERMELINDO: 3 Review of Systems All systems reviewed & are unremarkable except as noted in HPI and below Gastrointestinal Gastrointestinal: Reports as per HPI and Reports abdominal pain Exam Narrative Exam Narrative: Constitutional: Alert and oriented x3. Appears stated age. Normal body habitus. Head: Normocephalic, no trauma. Eyes: Pupils PERRL, Red reflex noted, EOM's intact. Eyelids symmetrical without lesions, discharge, or swelling. Chest: RRR, Normal S1, S2, distal pulses intact. Resp: Lungs clear to auscultation bilaterally, no wheezes, rales, or rhonchi. Abdomen: Soft, non-distended, Normoactive bowel sounds all 4 quads. Musculoskeletal: Normal gait, Moves all 4 extremities without difficulty. Skin: No suspicious rashes or lesions. Capillary refill less than 2 sec. Neurologic: Cranial nerves II-XII intact. Alert and oriented x 3. Motor: No deficits noted. Sensory: Intact bilaterally all 4 extremities. Hematologic/Lymphatic: No ecchymosis, no lymphadenopathy. Course Vital Signs Vital signs: Vital Signs Temperature 36.6 C 03/23/24 19:29 Pulse 100 H 03/23/24 19:29 Respiratory Rate 16 03/23/24 19:29 Blood Pressure 167/94 H 03/23/24 19:29 Pulse Oximetry 98 03/23/24 19:29 Temperature 36.6 C 03/23/24 19:53 Temperature Source Temporal Artery Scan 03/23/24 19:53 Pulse 100 H 03/23/24 19:53 Respiratory Rate 16 03/23/24 19:53 Blood Pressure 167/94 H 03/23/24 19:53 Blood Pressure Position Sitting 03/23/24 19:53 Pulse Oximetry 98 03/23/24 19:53 Oxygen Delivery Method Room Air 03/23/24 19:53 Oxygen Flow Rate 0 03/23/24 19:53 Pain Level 0 03/23/24 19:53 Medical Decision Making 28-year-old male presents to the ER with a chief complaint of left lower quadrant abdominal pain which began this morning. He reports fever 100.8 yesterday. He has been taking Tylenol. Upon arrival his pain is resolved. He also reports some urinary urgency. Past surgical history includes appendectomy, No other significant past medical history or surgeries. He reports this happened approximately a month ago and has doctor checked him for STDs and had negative workup at that time. He denies any concerns for STDs, denies any testicular swelling pain. IV, CBC CMP, lipase urinalysis ordered CT abdomen pelvis without contrast ordered. Differential diagnosis includes but not limited to kidney stone, diverticulitis, gastroenteritis, gas pain, UTI, pyelonephritis. Patient requesting to leave prior to CT abdomen results. I did discuss his labs with him and differential diagnosis including kidney stone however without the CT results I did verbalize that I am unable to definitively tell him what is causing his pain. He reports that his pain has somewhat returned at this time. He is still requesting to leave prior to full workup being complete and AGAINST MEDICAL ADVICE. Patient requesting to leave AMA. The patient appears clinically sober and is not under the influence of any known substances. Discussed risks and benefits with patient. Patient verbalizes understanding of situation and the risks of leaving including worsening condition, developing disability, including but not limited to . Discussed results of labs and imaging, if they were performed and recommendations for further treatment and/or observation. The patient verbalizes understanding of the results discussed. Every effort was made to involve family and situation discussed. At this time patient has opted to leave against medical advice. Patient is alert and oriented and has the capacity to make own decisions. Patient given discharge and strict return instructions. This text was generated using [employer] system, please disregard any oddities of phrase or misspellings. Medical Records Medical records reviewed: Yes I reviewed the patient's medical records. Lab Data Lab results reviewed: Yes I reviewed the patient's lab results. Labs: Laboratory Tests Range/Units 03/23/24 19:55 WBC (4.4-10.8) 10^3/uL 12.55 H RBC (4.36-5.78) 10^6/uL 5.25 Hgb (13.5-17.5) g/dL 15.6 Hct (40.0-50.0) % 45.1 MCV (80-95) fL 86 MCH (27.0-33.0) pg 29.7 MCHC (32.0-36.0) % 34.6 RDW (11.8-14.1) % 12.1 Plt Count (130-400) 10^3/uL 198 MPV (8.0-11.0) fL 9.5 Immature Gran % % 0.6 Neutrophils % % 70.9 Lymphocytes % % 19.4 Monocytes % % 8.5 Eosinophils % % 0.4 Basophils % % 0.2 Nucleated RBC % (0.0-0.3) % 0.0 Absolute Neutrophils (1.2-6.7) 10^3/uL 8.90 H Absolute Lymphocytes (1.2-3.4) 10^3/uL 2.43 Absolute Monocytes (0.1-0.8) 10^3/uL 1.07 H Absolute Eosinophils (0.0-0.7) 10^3/uL 0.05 Absolute Basophils (0.0-0.2) 10^3/uL 0.03 Sodium (136-145) mmol/L 139 Potassium (3.5-5.1) mmol/L 3.9 Chloride (98-107) mmol/L 103 Carbon Dioxide (21.0-32.0) mmol/L 27.3 Anion Gap (3-11) mmol/L 8.7 BUN (7-18) mg/dL 12 Creatinine (0.70-1.30) mg/dL 1.2 Est GFR (CKD-EPI 2020) (mL/min/1.73m2) 83.95 Glucose (74-106) mg/dL 100 Calcium (8.5-10.1) mg/dL 9.6 Magnesium (1.8-2.4) mg/dL 1.8 Total Bilirubin (0.2-1.0) mg/dL 0.5 AST (15-37) U/L 15 ALT (16-63) U/L 32 Alkaline Phosphatase (46-116) U/L 75 Total Protein (6.4-8.2) g/dL 7.5 Albumin (3.4-5.0) g/dL 4.1 Lipase (16-77) U/L 33 Urine Color (Yellow) Yellow Urine Clarity (Clear) Clear Urine pH (5-8) 7.5 Ur Specific [place] (1.005-1.025) 1.015 Urine Protein (Neg-Trace) mg/dL Negative Urine Ketones (Negative) mg/dL Negative Urine Blood (Negative) Trace-intact H Urine Nitrite (Negative) Negative Urine Bilirubin (Negative) Negative Urine Urobilinogen (Up to 0.2) mg/dL 0.2 Ur Leukocyte Esterase (Negative) Small H Urine RBC (0-2) HPF 0-2 Urine WBC (0-5) HPF 5-10 Ur Epithelial Cells (Negative) HPF Rare Urine Crystals (Negative) HPF Negative Urine Bacteria (Negative) HPF Rare Urine Casts (Negative) LPF Negative Urine Mucus (Negative) Negative Ur Culture Indicated? No Urine Glucose (Negative) mg/dL Negative Quality:SDOH Health Related Social Needs: No Data to Display PFSH All Active Problems (Updated 03/23/24 @ 21:58 by Floresita Maldonado NP) Abdominal pain (Acute) Flank pain (Acute) Viral gastroenteritis (Acute) Acute diarrhea (Acute) Abdominal pain (Acute) Ankle sprain (Acute) Social History Smoking/Tobacco Use Status: Current every day Tobacco Type: e-cigarettes Smoking risk assessment performed?: Yes Alcohol Intake: current Alcohol Intake frequency: holidays/special occasions only Drug use: Never Substance use type: does not use Housing: house Do you feel safe at home: Yes Do you feel safe in your relationship?: Yes
[2024-03-23 20:09] LABS: Abs Immature Grans 0.08 10^3/uL (0.0-0.06); Absolute Basophil Count 0.03 10^3/uL (0.0-0.2); Absolute Eosinophil Count 0.05 10^3/uL (0.0-0.7); Absolute Lymphocyte Count 2.43 10^3/uL (1.2-3.4); Absolute Monocyte Count 1.07 10^3/uL (0.1-0.8); Basophils % 0.2 %; Eosinophils % 0.4 %; HCT 45.1 % (40.0-50.0); HGB 15.6 g/dL (13.5-17.5); Immature Grans % 0.6 %; Lymphocytes % 19.4 %; MCH 29.7 pg (27.0-33.0); MCHC 34.6 % (32.0-36.0); MCV 86 fL (80-95); MPV 9.5 fL (8.0-11.0); Monocytes % 8.5 %; Neutrophils % 70.9 %; Platelet Count 198 10^3/uL (130-400); RBC 5.25 10^6/uL (4.36-5.78); RDW 12.1 % (11.8-14.1); RDW-SD 38.1 fL; WBC 12.55 10^3/uL (4.4-10.8)
[2024-03-23 20:10] LABS: Bilirubin Negative (Negative); Blood Trace-intact (Negative); Clarity Clear (Clear); Glucose Negative (Negative); Ketones Negative (Negative); Leukocyte Esterase Small (Negative); Nitrite Negative (Negative); Specific Gravity 1.015 (1.005-1.025); Urobilinogen 0.2 mg/dL (Up to 0.2); pH 7.5 (5-8)
[2024-03-23 20:24] LABS: Bacteria Rare HPF (Negative); C & S Indicated? No; Casts Negative LPF (Negative); Crystals Negative HPF (Negative); Epithelial Cells Rare HPF (Negative); Mucus Negative (Negative); RBC 0-2 HPF (0-2)
[2024-03-23 20:29] LABS: ALT 32 U/L (16-63); AST 15 U/L (15-37); Albumin 4.1 g/dL (3.4-5.0); Alkaline Phosphatase 75 U/L (46-116); Anion Gap 8.7 mmol/L (3-11); BUN 12 mg/dL (7-18); Bilirubin, Total 0.5 mg/dL (0.2-1.0); CO2 27.3 mmol/L (21.0-32.0); CREATININE 1.2 mg/dL (0.70-1.30); Calcium 9.6 mg/dL (8.5-10.1); Chloride 103 mmol/L (98-107); Estimated GFR 83.95 (mL/min/1.73m2); Glucose 100 mg/dL (74-106); Lipase 33 U/L (16-77); Magnesium 1.8 mg/dL (1.8-2.4); Potassium 3.9 mmol/L (3.5-5.1); Sodium 139 mmol/L (136-145); Total Protein 7.5 g/dL (6.4-8.2)
[2024-03-23 22:10] VITALS: BP 145/98; PULSE 84; TEMP 36.2; O2SAT 97
--- NOTE | 2024-03-23 22:50 | DI.VRAD_ITS ---
PROCEDURE INFORMATION: Exam: CT Abdomen And Pelvis Without Contrast Exam date and time: 03/23/2024 9:00 PM Age: 28 years old Clinical indication: Other: Left flank pain, fever, urinary urgency; Prior surgery; Surgery date: 6+ months; Surgery type: Appendectomy TECHNIQUE: Imaging protocol: Computed tomography of the abdomen and pelvis without contrast. COMPARISON: CT ABDOMEN PELVIS W 09/05/2022 10:55 PM FINDINGS: Lungs: Lateral right middle lobe 6 mm peripheral pulmonary nodule is unchanged. Liver: Normal. No mass. Gallbladder and bile ducts: Normal. No calcified stones. No ductal dilation. Pancreas: Normal. No ductal dilation. Spleen: Normal. No splenomegaly. Adrenal glands: Normal. No mass. Kidneys and ureters: Left renal atrophy, as before. Dilated distal left ureter is unchanged. No urolithiasis. Right kidney and ureter are unremarkable. Stomach and bowel: Unremarkable. No obstruction. No mucosal thickening. Appendix: Prior appendectomy. Intraperitoneal space: Unremarkable. No free air. No significant fluid collection. Vasculature: Pelvic phleboliths. Aorta and IVC are unremarkable. Lymph nodes: Unremarkable. No enlarged lymph nodes. Urinary bladder: Unremarkable as visualized. Reproductive: Unremarkable as visualized. Bones/joints: Unremarkable. No acute fracture. Soft tissues: Unremarkable. IMPRESSION: 1. Unchanged left renal atrophy and dilated distal left ureter. No urolithiasis or evidence of pyelonephritis. 2. Unchanged benign right middle lobe pulmonary nodule. Dictated and Authenticated by: Lan Kaufman MD. Ordering:DIONY Canas MD
== END 2024-03-23 22:04 | disposition left against medical advice (07) ==
PROVIDERS: Emergency Provider Registered Nurse Emergency; PCP Physician Assistant
DX: R10.32 Left lower quadrant pain (principal); R39.15 Urgency of urination; R50.9 Fever, unspecified; N26.1 Atrophy of kidney (terminal); I10 Essential (primary) hypertension; E78.5 Hyperlipidemia, unspecified; F17.290 Nicotine dependence, other tobacco product, uncomplicated; Z53.29 Procedure and treatment not carried out because of patient's decision for other reasons
CPT/HCPCS: 36415; 80053; 83690; 99284; 74176; 81003; 81015; 83735; 85025

== ENCOUNTER 2024-03-26 12:44 | Outpatient (REF) | payer OTHER, SELFPAY ==
[2024-03-26 19:49] LABS: HCT 45.1 % (40.0-50.0); HGB 15.4 g/dL (13.5-17.5); MCH 29.7 pg (27.0-33.0); MCHC 34.1 % (32.0-36.0); MCV 87 fL (80-95); MPV 9.9 fL (8.0-11.0); Platelet Count 194 10^3/uL (130-400); RBC 5.18 10^6/uL (4.36-5.78); RDW 12.1 % (11.8-14.1); WBC 14.69 10^3/uL (4.4-10.8)
[2024-03-26 19:53] LABS: ESR 26 mm/hr (0-15)
[2024-03-26 19:58] LABS: ALT 43 U/L (16-63); AST 18 U/L (15-37); Albumin 4.2 g/dL (3.4-5.0); Alkaline Phosphatase 78 U/L (46-116); Anion Gap 13.8 mmol/L (3-11); BUN 14 mg/dL (7-18); Bilirubin, Total 0.75 mg/dL (0.2-1.0); C-Reactive Protein 6.81 mg/dL (<or=0.5); CO2 24.2 mmol/L (21.0-32.0); CREATININE 1.1 mg/dL (0.70-1.30); Chloride 100 mmol/L (98-107); Estimated GFR 93.19 (mL/min/1.73m2); Glucose 88 mg/dL (74-106); Sodium 138 mmol/L (136-145); Total Protein 7.5 g/dL (6.4-8.2)
[2024-03-29 09:07] LABS: Lyme Ab w Rflx to Lyme Confirm Negative (Negative)
[2024-03-30 14:30] LABS: Anaplasma phagocytophilum Negative (Negative); B. miyamotoi PCR Negative (Negative); Babesia divergens/MO-1 Negative (Negative); Babesia duncani Negative (Negative); Babesia microti Negative (Negative); Ehrlichia chaffeensis Negative (Negative); Ehrlichia ewingii/canis Negative (Negative); Ehrlichia muris eauclairensis Negative (Negative)
== END 2024-03-26 12:45 | disposition home or self-care (01) ==
LOC: NCHCN 12:44
PROVIDERS: PCP Physician Assistant; Visit Provider Physician Assistant
DX: R50.9 Fever, unspecified (principal); R70.0 Elevated erythrocyte sedimentation rate; R79.82 Elevated C-reactive protein (CRP); Z11.8 Encounter for screening for other infectious and parasitic diseases
CPT/HCPCS: 80053; 85027; 85652; 87798; 86140; 86618

== ENCOUNTER 2024-10-11 11:13 | Outpatient (CLI) | payer OTHER, SELFPAY ==
[2024-10-11 11:01] LABS: BUN 16 mg/dL (7-18); CREATININE 1.1 mg/dL (0.70-1.30); Estimated GFR 92.61 (mL/min/1.73m2)
== END 2024-10-11 11:14 | disposition home or self-care (01) ==
LOC: LBO 11:13
PROVIDERS: PCP Physician Assistant; Visit Provider Nurse Practitioner Gerontology
DX: N26.1 Atrophy of kidney (terminal) (principal)
CPT/HCPCS: 36415; 84520; 82565

== ENCOUNTER 2024-10-22 10:08 | Outpatient (REF) | payer OTHER, MEDICAID, SELFPAY ==
[2024-10-22 15:39] LABS: HCT 46.5 % (40.0-50.0); HGB 16.3 g/dL (13.5-17.5); MCH 29.7 pg (27.0-33.0); MCHC 35.1 % (32.0-36.0); MCV 85 fL (80-95); Platelet Count 221 10^3/uL (130-400); RBC 5.49 10^6/uL (4.36-5.78); RDW 12.8 % (11.8-14.1); RDW-SD 39.5 fL; WBC 7.74 10^3/uL (4.4-10.8)
[2024-10-22 15:59] LABS: ALT 26 U/L (16-63); AST 13 U/L (15-37); Albumin 4.1 g/dL (3.4-5.0); Alkaline Phosphatase 69 U/L (46-116); Anion Gap 7.5 mmol/L (3-11); BUN 16 mg/dL (7-18); Bilirubin, Total 0.49 mg/dL (0.2-1.0); CO2 29.5 mmol/L (21.0-32.0); CREATININE 1.1 mg/dL (0.70-1.30); Calcium 9.4 mg/dL (8.5-10.1); Calculated LDL 137 mg/dL (<100); Chloride 107 mmol/L (98-107); Cholesterol 219 mg/dL (<200); Estimated GFR 92.61 (mL/min/1.73m2); Glucose 87 mg/dL (74-106); HDL Cholesterol 44 mg/dL (40-60); Potassium 4.4 mmol/L (3.5-5.1); Sodium 144 mmol/L (136-145); Triglyceride 191 mg/dL (<150)
[2024-10-22 16:39] LABS: Hemoglobin A1C 4.9 % (<5.7)
== END 2024-10-22 10:09 | disposition home or self-care (01) ==
LOC: NCHCN 10:08
PROVIDERS: PCP Physician Assistant; Visit Provider Physician Assistant
DX: K21.9 Gastro-esophageal reflux disease without esophagitis (principal); E78.5 Hyperlipidemia, unspecified; Z13.1 Encounter for screening for diabetes mellitus
CPT/HCPCS: 80053; 80061; 85027; 83036

== ENCOUNTER 2025-04-18 16:02 | Outpatient (REF) | payer OTHER, SELFPAY ==
[2025-04-18 17:15] LABS: Iron 90 ug/dL (65-175)
== END 2025-04-18 16:03 | disposition home or self-care (01) ==
LOC: NCHCN 16:02
PROVIDERS: PCP Physician Assistant; Visit Provider Physician Assistant
DX: G25.81 Restless legs syndrome (principal)
CPT/HCPCS: 83540